=== PATIENT | male | born 1960 | race Caucasian/White ===

== ENCOUNTER 2021-07-27 08:10 | Day surgery (SDC) | payer MEDICAID ==
[2021-07-27] VITALS (8 sets, daily range): BP systolic 122–165; BP diastolic 76–107
[~2021-07-27] VITALS: Ht 177.8 cm; Wt 96.6 kg
[2021-07-27] MEDS ORDERED: diphenhydrAMINE 25mg capsule PO PRN (08:35)
[2021-07-27] MEDS ORDERED: normal saline 1,000 ML IV SCH (08:35)
[2021-07-27] MEDS ORDERED: AMLO5TAB16 PO (08:38)
[2021-07-27] MEDS ORDERED: IBUP-1985 PO (08:41)
[2021-07-27] MEDS ORDERED: NITR0.4T48 SL (08:41)
[2021-07-27] MEDS ORDERED: ACET-2006 PO (08:41)
[2021-07-27 09:46] LABS: BASOPHILS # (AUTO) 0.1 X10'3 (0-0.2); BASOPHILS % (AUTO) 1.3 % (0-1); EOSINOPHILS % (AUTO) 1.1 % (0-6); HEMATOCRIT 42.8 % (42.0-52.0); HEMOGLOBIN 15.1 g/dl (14.0-17.9); LYMPHOCYTES # (AUTO) 0.9 X10'3 (1.1-4.8); LYMPHOCYTES % (AUTO) 20.6 % (21-51); MEAN CORPUSCULAR HEMOGLOBIN 34.4 PG (27.0-31.0); MEAN CORPUSCULAR HGB CONC 35.2 g/dL (33.0-36.5); MEAN CORPUSCULAR VOLUME 97.7 FL (78-98); MEAN PLATELET VOLUME 6.6 FL (7.4-10.4); MONOCYTES # (AUTO) 0.4 X10'3 (0-0.9); MONOCYTES % (AUTO) 8.5 % (2-12); NEUTROPHILS # (AUTO) 2.9 X10'3 (1.8-7.7); NEUTROPHILS % (AUTO) 68.5 % (42-75); PLATELET COUNT 182 X10'3 (140-440); RED BLOOD COUNT 4.38 X10'6 (4.70-6.10); RED CELL DISTRIBUTION WIDTH 12.2 % (11.5-14.5); WHITE BLOOD COUNT 4.3 X10'3 (4.5-11.0)
[2021-07-27 09:57] LABS: ALBUMIN 3.9 G/DL (3.4-5.0); ANION GAP 14 (8-16); BLOOD UREA NITROGEN 4 MG/DL (7-18); BUN/CREATININE RATIO 4.8 (5.4-32.0); CALCIUM 8.7 MG/DL (8.5-10.1); CHLORIDE 96 MMOL/L (99-107); CREATININE 0.84 MG/DL (0.60-1.10); GLUCOSE 98 MG/DL (70-104); POTASSIUM 3.6 MMOL/L (3.5-5.1); SODIUM 132 MMOL/L (135-145); TOTAL CARBON DIOXIDE 22.2 MMOL/L (24-32); eGFR > 90 ML/MIN
[2021-07-27] MEDS ORDERED: midazolam 1 mg/ML 2ml injection ONE ×4 (12:24→13:39)
[2021-07-27] MEDS ORDERED: LIDOcaine 1% (10mg/ml)w/preservative injection 20ml MDV ONE (12:24)
[2021-07-27] MEDS ORDERED: heparin 1,000unit/ml 10ml vial 10 ML ONE (12:24)
[2021-07-27] MEDS ORDERED: iohexol 350MG/ML 100ml bottle IV ONE ×2 (12:24→13:41)
[2021-07-27] MEDS ORDERED: fentaNYL/PF 50MCG/1 ML 2ML syringe ONE (12:24)
[2021-07-27] MEDS ORDERED: iohexol 350 MG/ML 50ML vial IV ONE ×2 (12:24→13:35)
[2021-07-27] MEDS ORDERED: verapamil 2.5 mg/ml inj IV ONE (12:45)
[2021-07-27] MEDS ORDERED: nitroGLYCERIN-Tridil 50MG/D5W 250 ML IV ONE (12:45)
[2021-07-27] MEDS ORDERED: clopidogrel 300mg tablet ONE (14:21)
[2021-07-27] MEDS ORDERED: HYDROcodone/acetaminophen 5mg/325mg tablet PO PRN (15:00)
[2021-07-27] MEDS ORDERED: ondansetron/PF 4mg/2ml inj IV PRN (15:00)
[2021-07-27] MEDS ORDERED: HYDROcodone/acetaminophen 10/325mg tab PO PRN (15:00)
[2021-07-27] MEDS ORDERED: proCHLORperazine 10 MG/2 ml inj IV PRN (15:00)
== END 2021-07-27 18:00 | disposition home or self-care (01) ==
LOC: SSTAY O 08:10
PROVIDERS: ATTEND Internal Medicine Cardiovascular Disease
DX: R07.89 Other chest pain (principal); I25.119 Atherosclerotic heart disease of native coronary artery with unspecified angina pectoris; I10 Essential (primary) hypertension; Z79.899 Other long term (current) drug therapy; Z96.653 Presence of artificial knee joint, bilateral; Z96.612 Presence of left artificial shoulder joint; Z96.662 Presence of left artificial ankle joint
CPT/HCPCS: 36415; 80048; 82948; 83735; 85025; 85610; 92978; 93005; 93458; 99152; 99153; C1725; C1751; C1753; C1769; C1874; C1894; C9600; J1644; J2250; J3010; J3490; J7030; Q0163; Q9967; 93571; A4620; A6258